=== PATIENT | female | born 1970 | race African-American/Black ===

== ENCOUNTER 2020-01-08 14:27 | Emergency (ER) | payer MEDICARE ==
[~2020-01-08] VITALS: Ht 165.1 cm; Wt 78.0 kg
[~2020-01-08 14:27] MED LIST: GABA600T PO; WARF10TA PO
[2020-01-08 14:37] VITALS: BP 109/70
[2020-01-08 15:27] LABS: ALBUMIN 3.5 g/dL (3.4-5.0); ANION GAP 6 mmol/L (5-15); CALCIUM 7.9 mg/dL (8.5-10.1); CHLORIDE 113 mmol/L (98-107); CREATININE 0.83 mg/dL (0.55-1.02)
[2020-01-08 15:32] LABS: MEAN CORPUSCULAR HEMOGLOBIN 31.5 pg (27.0-34.8); MEAN CORPUSCULAR HGB CONC 33.2 g/dL (32.4-35.8); PLATELET COUNT 252 x10^3/uL (130-400); RED BLOOD COUNT 3.78 x10^6/uL (3.82-5.3); RED CELL DISTRIBUTION WIDTH 14.2 % (9.6-15.2)
[2020-01-08] MEDS ORDERED: AMOXICILLIN/CLAV 875-125MG TABLET ONE (15:54)
[2020-01-08] MEDS ORDERED: AMOXICILLIN/CLAV 875-125MG TABLET PO ONE (16:00)
[2020-01-08 16:06] LABS: BASOPHILS # (AUTO) 0.02 x10^3/uL (0-0.1); BASOPHILS % (AUTO) 0 % (0-1); EOSINOPHILS # (AUTO) 0.14 x10^3/uL (0-0.4); EOSINOPHILS % (AUTO) 3 % (1-7); LYMPHOCYTES # (AUTO) 1.56 x10^3/uL (1-3.4); LYMPHOCYTES % (AUTO) 38 % (22-44); MD SCAN; MONOCYTES # (AUTO) 0.51 x10^3/uL (0.2-0.8); MONOCYTES % (AUTO) 13 % (2-9); NEUTROPHILS # (AUTO) 1.84 x10^3/uL (1.8-6.8); NEUTROPHILS % (AUTO) 45 % (42-75)
--- NOTE | 2020-01-08 16:23 | NUR ---
TASK RN: BEDSIDE REPORT TO JOSE CANCINO. MEDICATION ADMINISTERED PER ORDER.
== END 2020-01-08 16:38 | disposition home or self-care (01) ==
LOC: MERGE 15:50 → ED 15:50
DX: Z48.00 Encounter for change or removal of nonsurgical wound dressing (principal)
CPT/HCPCS: 36415; 80048; 82040; 85025; 99284

== ENCOUNTER 2020-06-14 23:53 | Emergency (ER) | payer MEDICARE ==
[~2020-06-14] VITALS: Ht 165.1 cm; Wt 76.0 kg
--- NOTE | 2020-06-15 01:00 | NUR ---
Pt room from lobby in wheelchair.
[2020-06-15] MEDS ORDERED: HYDROcodone/APAP 5/325 TABLET ONE (01:25)
[2020-06-15] MEDS ORDERED: HYDROcodone/APAP 5/325 TABLET PO ONE (01:30)
[2020-06-15] MEDS ORDERED: XARELTO PO (02:50)
[2020-06-15] MEDS ORDERED: ZOLP10TA PO (02:50)
[2020-06-15] MEDS ORDERED: GABA600T7 PO (02:50)
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
[2020-06-15 02:53] VITALS: BP 129/75
--- NOTE | 2020-06-15 03:28 | NUR ---
Patient given discharge instructions and they have confirmed that they understand the instructions. Patient ambulatory with steady gait. DENIES ADDITIONAL QUESTIONS OR NEEDS AT THIS TIME. NAD. NO PT BELONGINGS LEFT IN ROOM AFTER DC.
== END 2020-06-15 03:29 | disposition home or self-care (01) ==
LOC: ED 06-15 02:58
DX: G89.11 Acute pain due to trauma (principal); M79.671 Pain in right foot; J44.9 Chronic obstructive pulmonary disease, unspecified; Z86.718 Personal history of other venous thrombosis and embolism; Z87.891 Personal history of nicotine dependence
CPT/HCPCS: 99284

== ENCOUNTER 2020-08-13 07:30 | Emergency (ER) | payer MEDICARE ==
[~2020-08-13] VITALS: Ht 165.1 cm; Wt 78.0 kg
[~2020-08-13 07:30] MED LIST changes: +GABA600T7 PO; +XARELTO PO; +ZOLP10TA PO
[2020-08-13] MEDS ORDERED: HYDROmorphone 1 MG/ML, 1ML INJ IM ONE (08:00)
[2020-08-13] MEDS ORDERED: ONDANSETRON ODT 4 MG PO ONE (08:00)
[2020-08-13] MEDS ORDERED: ONDANSETRON ODT 4 MG ONE (08:10)
[2020-08-13] MEDS ORDERED: HYDROmorphone 1 MG/ML, 1ML INJ ONE (08:10)
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
--- NOTE | 2020-08-13 08:21 | NUR ---
PT MEDICATED PER JAN. RAILS UP AND PT WATCHING TV.
--- NOTE | 2020-08-13 08:37 | NUR ---
PT OFF FLOOR TO XRAY
--- NOTE | 2020-08-13 09:00 | NUR ---
PT BACK IN THE ROOM
[2020-08-13 09:33] VITALS: BP 111/73
--- NOTE | 2020-08-13 09:34 | NUR ---
PT REC'VD DISCHARGE INSTRUCTIONS AND EDUCATION. PT STATES NO FURTHER QUESTIONS.
--- NOTE | 2020-08-13 09:48 | NUR ---
PT AMBULATED TO WI DESK, STEADY GAIT
== END 2020-08-13 09:51 | disposition home or self-care (01) ==
LOC: ED 08:51
DX: S76.111A Strain of right quadriceps muscle, fascia and tendon, initial encounter (principal); J44.9 Chronic obstructive pulmonary disease, unspecified; Z86.718 Personal history of other venous thrombosis and embolism; Z89.519 Acquired absence of unspecified leg below knee; V49.49XA Driver injured in collision with other motor vehicles in traffic accident, initial encounter; Y93.89 Activity, other specified; Y92.410 Unspecified street and highway as the place of occurrence of the external cause; Y99.8 Other external cause status
CPT/HCPCS: 73502; 96372; 99283; J1170; Q0162

== ENCOUNTER → 2021-04-18 | Outpatient (CLI) | payer MEDICARE | END | disposition home or self-care (01) | LOC: RAD 15:51 | PROVIDERS: ATTEND Family Medicine | DX: M54.5 Low back pain (principal) | CPT/HCPCS: 72110 ==

== ENCOUNTER 2021-05-13 14:11 | Emergency (ER) | payer MEDICARE ==
[~2021-05-13] VITALS: Ht 165.1 cm; Wt 68.5 kg
[2021-05-13 14:14] VITALS: BP 108/69
--- NOTE | 2021-05-13 14:32 | NUR ---
pt presents to ed with c/o vaginal swelling. swelling noted to labia bilaterally. erpa at bedside for eval.
[2021-05-13] MEDS ORDERED: HYDROcodone/APAP 5/325 TABLET ONE ×2 (14:41→14:42)
[2021-05-13] MEDS ORDERED: HYDROcodone/APAP 5/325 TABLET PO ONE (15:00)
[2021-05-13] MEDS ORDERED: LIDOCAINE 2%, 20ML SQ ONE (15:00)
--- NOTE | 2021-05-13 16:30 | NUR ---
DC INSTRUCTIONS REVIEWED.
== END 2021-05-13 14:52 | disposition home or self-care (01) ==
LOC: ED 14:45
DX: N75.1 Abscess of Bartholin's gland (principal); J44.9 Chronic obstructive pulmonary disease, unspecified; Z86.718 Personal history of other venous thrombosis and embolism; Z89.519 Acquired absence of unspecified leg below knee
CPT/HCPCS: 56420; 99284

== ENCOUNTER 2021-06-11 15:50 | Emergency (ER) | payer MEDICARE ==
[~2021-06-11] VITALS: Ht 165.1 cm; Wt 67.0 kg
[2021-06-11 16:13] VITALS: BP 113/77
[2021-06-11 17:25] LABS: MICROSCOPIC AUTO
[2021-06-11] MEDS ORDERED: KETOROLAC 30 MG/1 ML ONE (17:27)
[2021-06-11] MEDS ORDERED: KETOROLAC 30 MG/1 ML IM ONE (17:30)
[2021-06-11 17:36] LABS: ALBUMIN 3.7 g/dL (3.4-5.0); ANION GAP 5 mmol/L (5-15); CALCIUM 8.6 mg/dL (8.5-10.1); CHLORIDE 108 mmol/L (98-107); CREATININE 0.59 mg/dL (0.55-1.02)
[2021-06-11 18:10] LABS: BASOPHILS % (AUTO) 0 % (0-1); EOSINOPHILS % (AUTO) 1 % (1-7); LYMPHOCYTES % (AUTO) 21 % (22-44); MEAN CORPUSCULAR HEMOGLOBIN 32.4 pg (27.0-34.8); MEAN CORPUSCULAR HGB CONC 33.8 g/dL (32.4-35.8); MEAN PLATELET VOLUME 9.6 fL (7.4-10.4); MONOCYTES % (AUTO) 9 % (2-9); NEUTROPHILS % (AUTO) 69 % (42-75); PLATELET COUNT 245 x10^3/uL (130-400); RED BLOOD COUNT 3.96 x10^6/uL (3.82-5.3); RED CELL DISTRIBUTION WIDTH 14.1 % (9.6-15.2)
[2021-06-11] MEDS ORDERED: CEFDINIR 300 MG CAPSULE PO/NG ONE (19:00)
[2021-06-11] MEDS ORDERED: CEFDINIR 300 MG CAPSULE ONE (19:03)
--- NOTE | 2021-06-11 19:20 | NUR ---
Patient/Caregiver given discharge instructions and they have confirmed that they understand the instructions. Patient ambulatory with steady gait. NAD, all questions answered appropriately, denies additional needs at this time. No personal belongings left in room after discharge.
== END 2021-06-11 19:21 | disposition home or self-care (01) ==
LOC: ED 18:30
DX: N30.00 Acute cystitis without hematuria (principal); M54.6 Pain in thoracic spine; J44.9 Chronic obstructive pulmonary disease, unspecified; Z86.718 Personal history of other venous thrombosis and embolism
CPT/HCPCS: 36415; 80048; 81001; 82040; 85025; 87086; 96372; 99283; J1885

== ENCOUNTER 2021-06-12 20:30 | Emergency (ER) | payer MEDICARE ==
[~2021-06-12] VITALS: Ht 165.1 cm; Wt 68.1 kg
--- NOTE | 2021-06-12 20:50 | NUR ---
PATIENT AMBULATORY TO ROOM.
[2021-06-12] MEDS ORDERED: CEFTRIAXONE 1,000 MG IM ONE (22:00)
[2021-06-12] MEDS ORDERED: AZITHROMYCIN 500 MG TABLET PO ONE (22:00)
[2021-06-12] MEDS ORDERED: MORPHINE SULFATE 4 MG/ML, 1ML IVPush PRN (22:00)
[2021-06-12] MEDS ORDERED: SODIUM CHLORIDE FLUSH 10ML SYR IVF ONE (22:00)
[2021-06-12] MEDS ORDERED: ONDANSETRON 2MG/ML, 2ML IVPush ONE (22:00)
[2021-06-12 22:03] VITALS: BP 112/47
[2021-06-12] MEDS ORDERED: ONDANSETRON 2MG/ML, 2ML ONE (22:07)
[2021-06-12] MEDS ORDERED: MORPHINE SULFATE 4 MG/ML, 1ML ONE (22:08)
--- NOTE | 2021-06-12 22:08 | NUR ---
PER [employer] MAN- OK TO GIVE CEFTRIAXONE IV AND OK TO GIVE 1G.
[2021-06-12] MEDS ORDERED: AZITHROMYCIN 250 MG TABLET ONE (22:10)
[2021-06-12 22:16] LABS: BASOPHILS % (AUTO) 0 % (0-1); EOSINOPHILS % (AUTO) 1 % (1-7); LYMPHOCYTES % (AUTO) 20 % (22-44); MEAN CORPUSCULAR HEMOGLOBIN 32.6 pg (27.0-34.8); MEAN CORPUSCULAR HGB CONC 34.4 g/dL (32.4-35.8); MEAN PLATELET VOLUME 9.3 fL (7.4-10.4); MONOCYTES % (AUTO) 11 % (2-9); NEUTROPHILS % (AUTO) 67 % (42-75); PLATELET COUNT 248 x10^3/uL (130-400)
[2021-06-12 22:27] LABS: ALBUMIN 3.8 g/dL (3.4-5.0); ANION GAP 5 mmol/L (5-15); CALCIUM 8.5 mg/dL (8.5-10.1); CHLORIDE 108 mmol/L (98-107)
[2021-06-12 22:35] LABS: CLUE CELLS PRESENT (NONE SEEN)
[2021-06-12 22:36] LABS: WET PREP WBCS MANY (FEW)
[2021-06-12] MEDS ORDERED: OMNIPAQUE 350 MG/ML, 100ML BOTTLE ONE (23:16)
[2021-06-12] MEDS ORDERED: LIDOCAINE-MPF 1%, 5ML ONE (23:51)
[2021-06-13] MEDS ORDERED: LIDOCAINE 1%, 10ML INFIL ONE
[2021-06-13] MEDS ORDERED: metroNIDAZOLE 500 MG TABLET PO ONE (00:30)
[2021-06-13] MEDS ORDERED: metroNIDAZOLE 500 MG TABLET ONE (00:30)
--- NOTE | 2021-06-13 00:42 | NUR ---
Patient given discharge instructions and they have confirmed that they understand the instructions. Patient ambulatory with steady gait. NAD, all questions answered appropriately, denies additional needs at this time. No personal belongings left in room after discharge.
== END 2021-06-13 00:44 | disposition home or self-care (01) ==
LOC: ED 21:35
DX: N76.0 Acute vaginitis (principal); N75.1 Abscess of Bartholin's gland; J44.9 Chronic obstructive pulmonary disease, unspecified; Z86.73 Personal history of transient ischemic attack (TIA), and cerebral infarction without residual deficits; Z89.519 Acquired absence of unspecified leg below knee
CPT/HCPCS: 36415; 74177; 80048; 82040; 84703; 85025; 87210; 87491; 87591; 87808; 96372; 96374; 96375; 99285; J0696; J2270; J2405; Q9967